=== PATIENT | female | born 1950 | race Caucasian/White ===

== ENCOUNTER 2023-09-22 07:08 | Emergency (ER) | payer MEDICARE, BC ==
[~2023-09-22] VITALS: Ht 167.6 cm; Wt 55.3 kg
[2023-09-22 07:15] VITALS: TEMP 97.9
[2023-09-22] MEDS ORDERED: ZESTRIL 5MG5 MG (07:23)
[2023-09-22 07:49] LABS: BASO % 0.8 % (0.0-2.0); EOS # 0.2 K/mm3 (0.0-0.7); EOS % 4.2 % (0.0-4.0); GRAN # 1.4 K/mm3 (1.4-6.5); HEMATOCRIT 36.3 % (37.0-47.0); HEMOGLOBIN 11.6 g/dl (12.5-16.0); LYMPH # 1.8 K/mm3 (1.2-3.4); LYMPH % 47.2 % (20.0-51.0); MEAN CELL VOLUME 90 fl (80.0-100.0); MEAN CORPUSCULAR HEMOGLOBIN 29 pg (27-31); MEAN CORPUSCULAR HGB CONC 32 g/dl (33.0-37.0); MEAN PLATELET VOLUME 9.9 fl (7.4-10.4); MONO # 0.4 K/mm3 (0.1-0.6); MONO % 10.5 % (1.7-9.3); PLATELET COUNT 163 K/mm3 (130-400); RED BLOOD COUNT 4.05 M/mm3 (4.10-5.30); REDCELL DISTRIBUTION WIDTH-CV 12.3 % (11.5-14.5)
[2023-09-22 08:01] LABS: ALBUMIN 3.6 g/dL (3.4-4.8); BILIRUBIN,TOTAL 0.4 mg/dL (0.2-1.2); CALCIUM 8.9 mg/dL (8.4-10.2); CREATININE, serum 0.81 mg/dL (0.57-1.11); POTASSIUM 4.2 mEq/L (3.5-4.5); TOTAL PROTEIN 6.8 g/dl (6.2-8.1)
[2023-09-22 09:30] VITALS: BP 148/77; PULSE 64
== END 2023-09-22 09:30 | disposition home or self-care (01) ==
LOC: COL.ER 07:08
PROVIDERS: Emergency Medicine
DX: M79.89 Other specified soft tissue disorders (principal); I10 Essential (primary) hypertension; Q21.12 Patent foramen ovale; Z79.899 Other long term (current) drug therapy; Z79.82 Long term (current) use of aspirin